=== PATIENT | female | born 1960 | race Caucasian/White ===

== ENCOUNTER → 2018-09-06 | Day surgery (SDC) | payer OTHER ==
[2018-09-05 12:55] VITALS: BMI 31.1
[~2018-09-06] MED LIST: Lidocaine 1% PF 5 ML VIAL ONE; Sodium Bicarbonate 2.5 MEQ/5 ML VIAL ONE
--- NOTE | 2018-09-06 15:52 | ULT ---
THYROID SONOGRAM: HISTORY: Thyroid nodule. COMPARISON: No prior studies available. FINDINGS: Originally, the order included a request for a sonographic guided fine needle aspiration of the left thyroid lobe mass. A complete sonogram was performed. The right thyroid lobe is 4 cm with a heterog eneous echotexture. No solid or cystic masses are visible. The isthmus is 0.4 cm. The left thyroid lobe is 4.6 cm, with a heterogeneous echotexture. A 0.3 cm cyst is present at the a nterior aspect of the superior pole. Along the posterior margin of the mid portion of the left thyroid lobe, a well circumscribed, oval, h omogeneous, hypoechoic, solid mass is 1.1 cm in length x 0.8 cm in depth. No cystic components or ca lcifications. IMPRESSION: 1. Very small, benign appearing nodule, along the posterior margin of the left thyroid lobe. 2. TI-RADS 2-Not suspicious. POS: [facility]
== END ==
LOC: ULT 12:06
PROVIDERS: ATTEND Specialist
DX: E04.1 Nontoxic single thyroid nodule (principal); M79.7 Fibromyalgia; Z91.09 Other allergy status, other than to drugs and biological substances; Z79.899 Other long term (current) drug therapy
CPT/HCPCS: 76536; J2001